=== PATIENT | female | born 1935 | race Caucasian/White ===

== ENCOUNTER → 2016-05-23 | Outpatient (CLI) | payer OTHER, MEDICARE ==
--- NOTE | 2016-05-23 15:21 | DX ---
Left Knee, Four Views Clinical Indications: Pain following trauma. Findings: A fracture is not identified. The bone alignment is normal. The soft tissues are unremarka ble. Impression: Negative for fracture.
== END ==
LOC: BMCIMAGING 14:15
PROVIDERS: ATTEND Emergency Medicine
DX: S82.002A Unspecified fracture of left patella, initial encounter for closed fracture (principal); M17.12 Unilateral primary osteoarthritis, left knee

== ENCOUNTER → 2017-05-16 | Outpatient (CLI) | payer OTHER | LOC: FIMAGING 09:54 | PROVIDERS: ATTEND Family Medicine | DX: M79.605 Pain in left leg (principal) ==